=== PATIENT | female | born 1960 | race Caucasian/White ===

== ENCOUNTER 2023-01-23 13:55 | Emergency (ER) | payer BC, SELFPAY ==
[2023-01-23 14:06] VITALS: BP 169/90; PULSE 92; RESP 16; TEMP 37.1; O2SAT 99; BMI 29.3
--- NOTE | 2023-01-23 14:10 | CRLHL7_ITS ---
For Patients: As a result of the Century Cures Act, medical imaging exams and procedure reports are released immediately into your electronic medical record. You may view this report before your referring provider. If you have questions, please contact your health care provider. INDICATION: Pain, left ankle and foot swelling COMPARISON: Same day ankle radiographs TECHNIQUE: Three views left foot. FINDINGS: BONES: No fracture. Normal mineralization. No focal bone lesion. JOINT: Normal joint alignment. Joint spaces: Advanced degenerative change the midthigh. Soft Tissues: Normal. No foreign body. IMPRESSION: Advanced osteoarthritis in the left midfoot. No acute findings. Dictated by Vanessa Charlton MD @ 01/23/2023 4:18:09 PM (Electronically Signed)
--- NOTE | 2023-01-23 14:10 | CRLHL7_ITS ---
For Patients: As a result of the Century Cures Act, medical imaging exams and procedure reports are released immediately into your electronic medical record. You may view this report before your referring provider. If you have questions, please contact your health care provider. Indication: Pain Technique: Three views Comparison: None Findings/Impression: Bones: No evidence of fracture. Well-formed plantar heel spur. Joint spaces: Dorsal midfoot osteophytes. Soft tissues: Mild lateral soft tissue swelling. Dictated by Earnest Angeles MD @ 01/23/2023 3:46:48 PM (Electronically Signed)
--- NOTE | 2023-01-23 15:36 | ED.GENADULT ---
HPI - General Adult General Chief complaint: Extremity Pain/Injury, Lower Stated complaint: L ankle/foot pain Time Seen by Provider: 01/23/23 14:47 History of Present Illness HPI narrative: Patient here with left foot and ankle pain. She has struggled with pain in this ankle for the last three years because of some degenerative changes. Saw the chiropractor x2 over the last couple weeks, today cannot hardly walk on it. Took 4 ibuprofen this morning, has been icing. Using a walker today to assist with ambulation. 62-year-old woman presenting to the emergency department concern of foot and ankle pain. This is left side. She has a history of right side hip replacement. Two days following last manipulation for foot pain. Actually had both feet manipulated as has been struggling with foot pain bilaterally but left greater than right. Pain was expected to increase since last manipulation 2 days ago but not to this degree. No fever. No rashes. No new trauma. Is admittedly a little better after the ibuprofen that she took. Higher than than usual though today. Has also been icing. Using a walker to get about particularly today. 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 Typically would require a good deal of time on her feet. She does have a custom orthotic insole bilaterally. Related Data Home Medications Medication Instructions Recorded Confirmed calcium carbonate 600 mg calcium 600 mg PO DAILY 02/11/22 07/30/22 (1,500 mg) tablet cholecalciferol (vitamin D3) 25 25 mcg PO DAILY 02/11/22 07/30/22 mcg (1,000 unit) tablet levothyroxine 75 mcg tablet 75 mcg PO DAILY 02/11/22 07/30/22 loratadine 10 mg tablet 10 mg PO DAILY 02/11/22 07/30/22 mometasone 50 mcg/actuation nasal 2 intranasal .Daily as needed PRN 02/11/22 07/30/22 spray multivitamin 1 tab PO QDAY 02/11/22 07/30/22 Allergies Allergy/AdvReac Type Severity Reaction Status Date / Time grass pollen Allergy Verified 07/30/22 15:17 Review of Systems Status of ROS: Reports: 6 or more systems reviewed and unremarkable except as noted in History and below [facility] Medical History Seasonal allergic rhinitis ?J30.2 - Other seasonal allergic rhinitis (ICD-10) Postmenopausal estrogen deficiency ?Z78.0 - Asymptomatic menopausal state (ICD-10) Hypothyroidism ?E03.9 - Hypothyroidism, unspecified (ICD-10) Surgical History Status post right hip replacement (06/27/21) ?Z96.641 - Presence of right artificial hip joint (ICD-10) Social History Smoking Status: Never smoker Exam Narrative: Exam Narrative: Pleasant. Breathing easily. Seated with legs out in front of her in bed. Skin is warm and dry. I do not appreciate much in the way of lower extremity edema Most tender about the lateral malleolus. There is mild soft tissue swelling about the lateral malleolus on the left though not indistinct from the right side. Most tender anterior and inferior to that lateral malleolus on the left. No plantar bruising. Overlapping of the left 5th toe over the 4th. Const: Vital Signs, click to edit/add: Vital Signs - 24 hr 01/23/23 14:06 Temperature 98.8 F Pulse Rate [Pulse Oximeter] 92 Respiratory Rate 16 Blood Pressure [Ri ght Upper Arm] 169/90 H Pulse Oximetry 99 Oxygen Delivery Me thod Room Air Documenting provider has reviewed patient's vital signs: yes Course Vital Signs Vital signs: Initial Vital Signs Temperature 98.8 F 01/23/23 14:06 Temperature Source Temporal Artery Scan 01/23/23 14:06 Pulse Rate 92 01/23/23 14:06 Pulse Rhythm Regular 01/23/23 14:06 Respiratory Rate 16 01/23/23 14:06 Blood Pressure 169/90 H 01/23/23 14:06 Blood Pressure Mean 116 H 01/23/23 14:06 Blood Pressure Position Sitting 01/23/23 14:06 Pulse Oximetry 99 01/23/23 14:06 Oxygen Delivery Method Room Air 01/23/23 14:06 Vital Signs Temperature 98.8 F 01/23/23 14:06 Pulse Rate 92 01/23/23 14:06 Respiratory Rate 16 01/23/23 14:06 Blood Pressure 169/90 H 01/23/23 14:06 Pulse Oximetry 99 01/23/23 14:06 Oxygen Delivery Method Room Air 01/23/23 14:06 Temperature 98.8 F 01/23/23 14:06 Pulse Rate 80 01/23/23 17:13 Respiratory Rate 16 01/23/23 17:13 Blood Pressure 175/100 H 01/23/23 17:13 Pulse Oximetry 93 01/23/23 17:13 Oxygen Delivery Method Room Air 01/23/23 17:13 Medical Decision Making MDM Narrative Medical decision making narrative: Can certainly do imaging given concerns. I would anticipate seeing osteoarthritic changes. I think it is unlikely that there is a fracture although I suppose there could be something more indolent or stress fracture. I wonder compensating for the right hip at some point exacerbated left foot/ankle symptoms. Does not have symptoms consistent with rheumatoid or other inflammatory condition joint. X-rays of the left foot and ankle reviewed by me shows osteoarthritic changes but I do not see acute abnormality. Heel spur. Radiology over-read notes advanced degenerative changes about the midfoot. No interventions otherwise required an emergency department. See patient discharge plan Discharge Plan Discharge Clinical Impression: Arthralgia of both ankles, Osteoarthritis, Arthralgia of both feet Patient Disposition: Home w/ Parent or Adult Condition: Stable Additional Instructions: Rest as able over the next few days. Elevate at rest. I appreciate that icing can help them feel better and as such might want to ice your ankles/foot 2-3 times daily over the next few days. It might be time to schedule a visit with Orthopedics. Can call [phone] to schedule locally. Injections might be helpful. Podiatry is also available at the [facility] Over this coming week could take 400-600 mg of ibuprofen maybe with a little food 3 times daily. Alternative to that would be up to 500 mg of naproxen 2 times daily. Either can be combined with acetaminophen. Prednisone might be helpful to settle down inflammation. If you find side effects too much, can take half the dosing or discontinue and continue with the ibuprofen or naproxen alone. Ibuprofen, naproxen, acetaminophen can be combined with prednisone as well. Prescriptions: No Action cholecalciferol (vitamin D3) 25 mcg (1,000 unit) tablet 25 mcg PO DAILY loratadine 10 mg tablet 10 mg PO DAILY mometasone 50 mcg/actuation spray,non-aerosol 2 intranasal .Daily as needed PRN calcium carbonate 600 mg calcium (1,500 mg) tablet 600 mg PO DAILY levothyroxine 75 mcg tablet 75 mcg PO DAILY multivitamin Tablet 1 tab PO QDAY Follow Up/Referrals: Melissa Barnes CNP [Primary Care Provider] - Stand Alone Forms: [facility] [facility] Info Instructions
[2023-01-23 17:13] VITALS: BP 175/100; PULSE 80; RESP 16; O2SAT 93
== END 2023-01-23 17:21 | disposition home or self-care (01) ==
PROVIDERS: Emergency Provider Family Medicine; PCP Family Medicine
DX: M19.072 Primary osteoarthritis, left ankle and foot (principal); M19.071 Primary osteoarthritis, right ankle and foot
CPT/HCPCS: 73610; 73630; 99283; 99284

== ENCOUNTER 2023-06-03 15:15 | Outpatient (RCR) | payer BC, SELFPAY | END 2023-06-26 13:38 | disposition home or self-care (01) | PROVIDERS: PCP Family Medicine; Visit Provider Physician Assistant | DX: M79.672 Pain in left foot (principal); M25.572 Pain in left ankle and joints of left foot; G89.29 Other chronic pain; M19.072 Primary osteoarthritis, left ankle and foot; Z51.89 Encounter for other specified aftercare | CPT/HCPCS: 97110; 97161; 97535 ==

== ENCOUNTER 2023-09-28 14:42 | Outpatient (CLI) | payer MEDICARE, BC, SELFPAY | END 2023-09-28 14:43 | disposition home or self-care (01) | LOC: NFLDREF 09-29 13:27 | PROVIDERS: PCP Family Medicine; Referring Provider Family Medicine; Visit Provider Nurse Practitioner Family | DX: N30.00 Acute cystitis without hematuria (principal) | CPT/HCPCS: 87086 ==

== ENCOUNTER 2023-11-07 07:05 | Emergency (ER) | payer MEDICARE, BC, SELFPAY ==
[2023-11-07 07:32] VITALS: BP 167/98; PULSE 74; RESP 16; TEMP 37.1; O2SAT 98; BMI 30.7
[2023-11-07] MEDS: ONDANSETRON ODT 4 MG TAB PO (08:28)
[2023-11-07] MEDS: MECLIZINE HCL 25 MG TABLET PO (08:28)
--- NOTE | 2023-11-07 08:28 | ED_ITS ---
HPI - General Adult General Date Seen: 11/07/23 Chief complaint: Dizziness/Vertigo Stated complaint: poss vertigo Time Seen by Provider: 11/07/23 08:02 Source: patient, RN notes reviewed and old records reviewed Mode of arrival: ambulatory Limitations: no limitations History of Present Illness HPI narrative: Patient is a 63-year-old woman who describes a vertigo which started evening, she presents on Thursday morning saying that she thought yesterday was getting little better but last night seem to get worse again. Also, they were supposed to leave for the [place] in 2 days, so she was hoping maybe she could get checked out in feel better by then. Her says though that they are just going to reschedule that trip. She describes as spinning type dizziness. She feels reasonably good when she is still, but when she turns her head or tries to get up and move she develops dizziness associated with nausea. She has also had some occasional diaphoresis. She did have an episode of vertigo about 13 years ago which she feels felt similar, though she does not recall having any diaphoresis at that time. She has not had chest pain or palpitations. She has not had other neurologic symptoms. No headache. She denies any prior medical history such as hypertension, stroke, diabetes, heart disease or atrial fibrillation. She says her blood pressure is always high when she goes to the doctor because she gets nervous. She does take Synthroid. She does not smoke or drink. Related Data Home Medications ?Medication ?Instructions ?Recorded ?Confirmed calcium carbonate 600 mg PO DAILY 02/11/22 11/07/23 cholecalciferol (vitamin D3) 25 25 mcg PO DAILY 02/11/22 11/07/23 mcg (1,000 unit) tablet levothyroxine 75 mcg tablet 75 mcg PO DAILY 02/11/22 11/07/23 loratadine 10 mg tablet 10 mg PO DAILY 02/11/22 11/07/23 multivitamin 1 tab PO QDAY 02/11/22 11/07/23 Previous Rx's ?Medication ?Instructions ?Recorded lorazepam 1 mg tablet 1 mg PO TID PRN #10 tabs 11/07/23 meclizine 25 mg tablet 25 mg PO TID PRN #15 tabs 11/07/23 ondansetron 4 mg disintegrating 4 mg PO TID PRN nausea and 11/07/23 tablet vomiting #10 tabs Allergies Allergy/AdvReac Type Severity Reaction Status Date / Time grass pollen Allergy Verified 11/07/23 07:35 Review of Systems Status of ROS: Reports: 10 or more systems reviewed and unremarkable except as noted in History and below [facility] Medical History Seasonal allergic rhinitis ?J30.2 - Other seasonal allergic rhinitis (ICD-10) Postmenopausal estrogen deficiency ?Z78.0 - Asymptomatic menopausal state (ICD-10) Hypothyroidism ?E03.9 - Hypothyroidism, unspecified (ICD-10) Surgical History Status post right hip replacement (06/27/21) ?Z96.641 - Presence of right artificial hip joint (ICD-10) Social History Smoking Status: Never smoker Do you use any of these nicotine containing products: None Second hand tobacco smoke exposure: No How often do you have a drink containing alcohol: never AUDIT-C Alcohol total score: 0 Non-prescribed substance use: denies use Exam Narrative: Exam Narrative: Vital signs as noted above. In general, an alert, well-appearing patient. She is comfortable lying still in bed. Head: Normocephalic, atraumatic. Eyes: Pupils are equal reactive. Extraocular movements are full. Conjunctivae are normal. Some nystagmus on rightward gaze, symptoms exacerbated with rightward gaze. ENT: Mucous membranes are moist. Throat is normal. Tongue is midline. Neck: Supple without lymphadenopathy. No bruits. Heart: Regular rate and rhythm. No murmur or rub. Lungs: Clear bilaterally. No increased work of breathing, crackles or wheezes. Abdomen: Soft and nontender. No organomegaly. Extremities: Well perfused. No edema. No calf tenderness. Pulses intact. Neurologic: Patient is alert and oriented to person and place. Speech is fluent. Face is symmetric. Moves all extremities equally. Cerebellar function is intact by finger-nose testing. Affect: Normal. Skin: Warm and dry. Well perfused. Const: Vital Signs, click to edit/add: Vital Signs - 24 hr 11/07/23 07:32 11/07/23 09:20 11/07/23 10:05 Temperature 98.8 F Pulse Rate [Pulse Oximeter] 74 7 L Respiratory Rate 16 16 Blood Pressure [Ri ght Upper Arm] 167/98 H 151/91 H Pulse Oximetry 98 99 99 Oxygen Delivery Me thod Room Air Room Air 11/07/23 10:10 11/07/23 11:26 Temperature Pulse Rate [Pulse Oximeter] 74 76 Respiratory Rate 16 16 Blood Pressure [Ri ght Upper Arm] 148/96 H 141/80 H Pulse Oximetry 97 98 Oxygen Delivery Me thod Room Air Room Air Documenting provider has reviewed patient's vital signs: yes Course Course ED Course: Overall patient is well-appearing, exam is reassuring. Presentation is most suggestive of a peripheral vertigo with waxing and waning symptoms, strong component of positional worsening, lack of ataxia or other neurologic symptoms, lack of risk factors. She did have an EKG here which shows a sinus rhythm, ventricular rate of 78. Nonspecific T-wave changes. I will go ahead and check a troponin, my suspicion for acute coronary syndrome is low however. I have fairly low suspicion as well of a central event such as stroke. For now, plan will be to give some meclizine and Zofran, see how she is feeling. Discussed with her that if symptoms are not improving over the next couple of days, would want her to be seen in the clinic beginning of next week. She would be outside the window for anything therapeutic at this time, but if not improving imaging may be warranted. She felt somewhat improved after meclizine and Zofran, but did ask for additional medications so she was given a mg of IV Ativan as well as Reglan 10 mg IV. Symptoms were nearly resolved after that. Labs showed a normal white blood cell count normal hemoglobin of 15, normal electrolytes and renal function and a blood sugar of 109. Point of care troponin was 0. Magnesium 2.3. I do think it is reasonable to let her go home. Have reviewed with her symptoms are persistent I would like her to be seen in clinic next week. For any acute worsening or inability to manage at home, development of acute new symptoms return to the ER. Vital Signs Vital signs: Initial Vital Signs Temperature 98.8 F 11/07/23 07:32 Temperature Source Temporal Artery Scan 11/07/23 07:32 Pulse Rate 74 11/07/23 07:32 Respiratory Rate 16 11/07/23 07:32 Blood Pressure 167/98 H 11/07/23 07:32 Blood Pressure Mean 121 H 11/07/23 07:32 Blood Pressure Position Sitting 11/07/23 07:32 Pulse Oximetry 98 11/07/23 07:32 Oxygen Delivery Method Room Air 11/07/23 07:32 Vital Signs Temperature 98.8 F 11/07/23 07:32 Pulse Rate 74 11/07/23 07:32 Respiratory Rate 16 11/07/23 07:32 Blood Pressure 167/98 H 11/07/23 07:32 Pulse Oximetry 98 11/07/23 07:32 Oxygen Delivery Method Room Air 11/07/23 07:32 Temperature 98.8 F 11/07/23 07:32 Pulse Rate 76 11/07/23 11:26 Respiratory Rate 16 11/07/23 11:26 Blood Pressure 141/80 H 11/07/23 11:26 Pulse Oximetry 98 11/07/23 11:26 Oxygen Delivery Method Room Air 11/07/23 11:26 Medications Administered Medications: Discontinued Medications Generic Name Dose Route Start Last Admin Trade Name Freq PRN Reason Stop Dose Admin Sodium Chloride 1,000 mls @ 1,000 mls/hr 11/07/23 09:45 11/07/23 11:05 0.9 % Sodium Chloride 1000 Ml IV 11/07/23 10:44 Infused .Q1H PERLA Infusion Metoclopramide HCl 10 mg/ 102 mls @ 306 mls/hr 11/07/23 09:45 11/07/23 10:28 Sodium Chloride IVPB 11/07/23 09:46 Infused ONCE ONE Infusion Lorazepam 1 mg 11/07/23 09:45 11/07/23 10:05 Lorazepam 2 Mg/Ml Inj IVP 11/07/23 09:46 1 mg ONCE ONE Administration Meclizine HCl 25 mg 11/07/23 08:20 11/07/23 08:28 Meclizine Hcl 25 Mg Tablet PO 11/07/23 08:21 25 mg ONCE ONE Administration Ondansetron HCl 4 mg 11/07/23 08:20 11/07/23 08:28 Ondansetron Odt 4 Mg Tab PO 11/07/23 08:21 4 mg ONCE ONE Administration Medical Decision Making Lab Data Labs: Lab Results 11/07/23 Range/Units 08:33 WBC 6.06 (4.50-11.00) K/uL RBC 4.98 (4.00-5.20) m/uL Hgb 15.1 (12.0-16.0) gm/dL Hct 44.2 (33.0-51.0) % MCV 89 (80-100) fL MCH 30 (26-34) pg MCHC 34 (32-36) gm/dL RDW Coeff of [place] 13.0 (11.5-15.5) % Plt Count 255 (140-440) K/uL Neut % (Auto) 73.1 H (42.0-72.0) % Lymph % (Auto) 18.2 L (20-44) % [place] % (Auto) 6.9 (0.0-11.0) % Eos % (Auto) 0.5 (0.0-7.0) % Baso % (Auto) 0.3 (0.0-3.0) % Neut # (Auto) 4.40 (1.7-7.0) K/uL Lymph # (Auto) 1.10 (0.90-2.90) K/uL [place] # (Auto) 0.40 (0.00-0.90) K/UL Eos # (Auto) 0.03 (0.00-0.50) K/uL Baso # (Auto) 0.02 (0.00-0.30) K/uL Abs Immat Gran (auto) 0.06 (0.00-0.30) K/uL Imm/Tot Granulo (auto) 1.0 % Sodium 138 (135-149) mmol/L Potassium 4.2 (3.6-5.1) mmol/L Chloride 105 (96-114) mmol/L Carbon Dioxide 27 (20-32) mmol/L Anion Gap 6 L (7-15) mEq/L BUN 20 (7-30) mg/dL Creatinine 0.8 (0.5-1.5) mg/dL Estimated Creat Clear 44.36 Estimated GFR 82 ml/min Glucose 109 (60-115) mg/dL Calcium 9.6 (8.4-10.6) mg/dL Magnesium 2.3 (1.5-2.6) mg/dL POC Troponin I 0.00 L (0.01-0.04) ng/ml Discharge Plan Discharge Clinical Impression: Positional vertigo Patient Disposition: Home, Self-Care Condition: Improved Instructions: Vertigo (DC) Additional Instructions: You can use prescribed medications at home as needed for symptoms. If you found Hallpike type maneuvers helpful previously, it would be reasonable to try that again. If you are not able to manage at home with symptoms despite treatment, return to the emergency department. If you are not improving over the next couple of days, please see her primary care doctor next week. Imaging may be reasonable if you are not improving, and they can also help with referral to physical therapy if needed. Prescriptions: New meclizine 25 mg tablet 25 mg PO TID PRNQty: 15 0RF ondansetron 4 mg tablet,disintegrating 4 mg PO TID PRN (Reason: nausea and vomiting) Qty: 10 0RF lorazepam 1 mg tablet 1 mg PO TID PRNQty: 10 0RF No Action cholecalciferol (vitamin D3) 25 mcg (1,000 unit) tablet 25 mcg PO DAILY loratadine 10 mg tablet 10 mg PO DAILY calcium carbonate 600 mg calcium (1,500 mg) tablet 600 mg PO DAILY levothyroxine 75 mcg tablet 75 mcg PO DAILY multivitamin Tablet 1 tab PO QDAY Follow Up/Referrals: Melissa Barnes [employer] [Primary Care Provider] - Stand Alone Forms: [employer] Info Instructions
--- OUTSIDE RECORDS SUMMARY | 2023-11-07 08:29 | XMS_ITS | Clinical Summary ---
Author Organization [facility] Address [place], [place] [address] Care Team Providers Care [place] Aide Name Role Phone Melissa Barnes DENNIS Primary Care Provider [phone] Allergies Active Allergy Reactions Criticality Noted Date Comments Grass Pollen Itching Low 11/01/2019 dust Medications Medication Sig Dispensed Refills Start Date End Date Status cholecalciferol (VITAMIN D3) 1,000 unit capsuleIndications: Vitamin D deficiency Take 1 capsule by mouth once daily. in the summer and 2 in the winter 0 07/28/2017 Active multivitamin (MVI) tablet Take 1 Tablet by mouth once daily. 100 tablet 3 07/28/2017 Active calcium carbonate (CALTRATE) 600 mg calcium (1,500 mg) tablet Take 1 tablet by mouth 2 times daily with meals. 180 tablet 3 07/28/2017 Active mometasone (NASONEX) (50 mcg each actuation) nasal sprayIndications:Al lergic rhinitis, unspecified seasonality, unspecified trigger Inhale 2 Sprays into affected nostril(s) once daily if needed (Nasal allergy symptoms). 34 g 06/17/2021 Active loratadine (CLARITIN) 10 mg tablet Take 10 mg by mouth once daily. 0 06/17/2021 Active ketotifen (ZADITOR) 0.025 % (0.035 %) ophthalmic solution Place 1 Drop into both eyes 2 times daily if needed (Eye allergy symptoms). Active levothyroxine (SYNTHROID) 75 mcg tabletIndications:H ypothyroidism, unspecified type Take 1 Tablet (75 mcg) by mouth once daily. 90 Tablet 3 02/13/2023 Active durable medical equipment (DME)Indications:Le ft ankle pain, unspecified chronicity,Chronic pain of left ankle Stabilizing speed pro ankle brace, size medium 05/06/2023 Active meloxicam (Mobic) 15 mg tabletIndications:L eft foot pain,Left ankle pain, unspecified chronicity,Foot pain, left,Chronic pain of left ankle,Arthritis of foot, left Take 1 Tablet (15 mg) by mouth once daily. 30 Tablet 1 06/29/2023 Active Active Problems Problem Noted Date Diagnosed Date SBO (small bowel obstruction) 03/07/2022 Hypothyroidism 03/07/2022 Pap smear for cervical cancer screening 01/24/20 Overview (03/14/2022): 01/2022 NIL/HPV negative. Plan: Routine Screening. Status post right hip replacement 06/27/2021 Postmenopausal 06/17/2021 Overview (06/17/2021): 2019 Other chronic sinusitis 02/06/2021 Overview (02/06/2021): takes linda for this about once a year Osteoporosis screening 07/28/2017 Overview (07/28/2017): DEXA normal 06/2016 due in 10 yrs Vitamin D deficiency 06/25/2011 Degenerative arthritis of lumbar spine 1 Unspecified hypothyroidism 06/11/2009 Allergic rhinitis, cause unspecified 05/08/2006 Resolved Problems Problem Noted Date Diagnosed Date Resolved Date Menorrhagia 08/16/2014 07/17/2015 FH: colon polyps 04/01/2014 06/17/2021 Menopause 07/31/2010 06/17/2021 Overview (02/06/2021): menses quit 2018 Bilateral hip pain 05/22/2008 0 Plantar fascial fibromatosis 10/21/2007 06/17/2021 Temporomandibular joint diso rders, unspecified 05/08/2006 07/17/2015 SINUSITIS RECURRENT 05/08/2006 06/18/19 22 Immunizations Name Administration Dates Next Due AMB Influenza, IIV3 (Age >=3 years)(Flu Clinic Only) 12/10/2009 COVID-19 vaccine (Perficient NTArnica 30mcg/0.3mL) PF, MDV 02/06/2021,05/20/2020,04/29/2020 Influenza A (H1N1), Inactiva dhiraj (Age >=3 Years) 03/20/2009 Influenza, IIV3 (Age 6-35 mos) 12/11/2015,2014,02/07/2009 Influenza, IIV3 (Age >=3 years) 12/03/19 19,12/16/2012,11/27/2011,2010,12/10/2009,02/07/2009,12/30/2007,0 03/16/2007 Influenza, IIV4 12/04/2022, 2,12/07/2020,2019,12/02/2018,12/10/2017,12/04/2016 Influenza, IIV4 (=>6mos) MDV 12/02/2018 Td (Age >=7 Years) 02/26/2002 Tdap 02/11/2022,01/12/2012 Zoster (Shingrix-RZV, recombinant) 01/16/2021, Family History Medical History Relation Name Comments Cancer Father tongue 02/01 esteban ng cancer 04/05 portion of lung removed GI Disease Father History of Poly ps Heart failure Father CHF Hypertension Father Arthritis Mother & scoliosis GI Disease Mother History of Poly ps Hypertension Mother Osteoporosis Mother Seizures Mother Cancer-breast Other Maternal Cousin Heart attack Paternal Grandmother Cancer-ovarian No Family History Relation Name Status Comments Brother Alive Father Alive Maternal Grandfather Maternal Grandmother Mother Alive Other Maternal Cousin Paternal Grandfather Paternal Grandmother Social History Tobacco Use Types Packs/Day Years Used Date Smoking Tobacco: Never Smokeless Tobacco: Never Tobacco Cessation:Counseling Given: Yes Alcohol Use Standard Drinks/Week Comments Yes 1.7 (1 standard drink = 0.6 oz p ure alcohol) SOCIALLY PHQ-2 Answer Date Recorded PHQ-2 TOTAL SCORE 0 02/13/2023 Social Connections Answer Date Recorded Frequency of Communication with Friends and Fami ly 0 02/13/2023 Financial Resource Strain Answer Date R ecorded Difficulty of Paying Living Expenses 3 02/13/2023 Difficulty of Paying Living Expenses Not on file 02/13/2023 Food Insecurity Answer Date Recorded Worried About Running Out of Food in the Last Ye ar 1 02/13/2023 Transportation Needs Answer Date Record ed Lack of Transportation (Medical) 1 02/13/2023 Housing Stability Answer Date Recorded Unable to Pay for Housing in the Last Year 1 02/13/2023 Sex and Gender Information Value Date Recorded Sex Assigned at Not on file Gender Identity Not on file Sexual Orientation Not on file Obstetrics History Para Term AB IAB SAB Ectopic Multiple Livin g Live Births 0 0 0 0 0 0 0 0 0 0 Last Filed Vital Signs Vital Sign Reading Time Taken Comments Blood Pressure 138/88 02/13/2023 7:54 AM OPERATING ROOM SCHEDULER Pulse 74 02/13/2023 7:54 AM OPERATING ROOM SCHEDULER Temperature 36.8 ??C (98.2 ??F) 07/28/2022 8:46 AM CD T Respiratory Rate 18 03/28/2022 8:48 PM OPERATING ROOM SCHEDULER Oxygen Saturation 99% 09/03/2022 2:06 PM CDT Inhaled Oxygen Concentration - - Weight 76.2 kg (168 lb) 02/13/2023 7:54 AM OPERATING ROOM SCHEDULER Height 155.6 cm (5' 1.25) 02/13/2023 7:54 AM CS T Body Mass Index 31.48 02/13/2023 7:54 AM OPERATING ROOM SCHEDULER Plan of Treatment Health Maintenance Due Date Last Done Comments HIV for age 15-65 1973 Mammogram for age 45-75 08/29/2023 08/29/19 23, 02/11/2022, 02/06/2021, Additional history exists DEXA/DXA scan for age 65+ 09/08/2023 07/31/2016 Pneumococcal series for age 65+ (1 of 1 - PCV) 09/08/2023 COVID-19 vaccine series (5 - 2022-24 season) 2023 12/20/2021, 02/06/2021, 05/20/2020, Additional history exists Influenza for age 65+ 10/25/2023 12/04/2022 , 12/20/2021, 12/07/2020, Additional history exists BMI (ht and wt on same day) for age 18+ 02/14/2024 02/13/2023, 02/11/2022, 06/17/2021, Additional history exists Depression screening for age 12+ 02/14/2024 02/13/2023, 02/11/2022, 02/06/2021, Additional history exists Colonoscopy through age 75 02/05/202502/05, 10/16/2014, 10/16/2014, Additional history exists Pap test for age 21-65 02/11/2025 , 02/11/2022, 07/30/2018, Additional history exists Lipids for age 45-75 02/14/2028 02/13/2023, 02/11/2022, 02/06/2021, Additional history exists Tetanus booster 02/12/2032 02/11/2022, 12/24, 02/26/2002 Hepatitis C screening for ag e 18-79 Completed 01/21/2019 Zoster (shingles) series for age 50+ Completed 01/16/2021, 09/26/2020 Tdap Completed 02/11/2022, 01/12/2012 Procedures Procedure Name Priority Date/Time Associated Diagnosis Comments LIPID PANEL W REFLEX MEASURED LDL Routine 02/13/2023 8:27 AM OPERATING ROOM SCHEDULER Routine general medical examination at a [facility] facility XR MAMMO LYNNETTE UNI DIAG RIGHT CHAD 08/28/2022 2:18 PM CDT Skin lesion HPV THIN PREP Routine 02/11/2022 11:19 AM OPERATING ROOM SCHEDULER Pap smear for cervical cancer screening COLONOSCOPY 02/06/2020 10:18 AM OPERATING ROOM SCHEDULER ANTI HCV Routine 01/21/2019 8:58 AM OPERATING ROOM SCHEDULER Encounter for hepatitis C screening test for low risk patient XR DXA BONE DENSITY 2 SITES AXIAL Routine 07/31/2016 9:11 AM CDT Osteoporosis screening from Last 3 Months or Most Recently Relevant to Health Maintenance Results * (ABNORMAL) LIPID PANEL W REFLEX MEASURED LDL (02/13/2023 8:27 AM [facility]) CHOLESTEROL,TOTAL 217(H) 100 - 199 mg/dL 02/13/2023 9:08 AM [facility] Comment: Cholesterol, Total Reference Ranges Desirable <200 mg/dL Borderline 200-239 mg/dL High >=240 mg/dL TRIGLYCERIDES 115 <150 mg/dL 02/13/2023 9:08 AM [facility] HDL CHOLESTEROL 71 >40 mg/dL 9:08 AM [facility] NON-HDL CHOLESTEROL 146(H) <145 mg/dl 02/13/2023 9:08 AM [facility] CHOL/HDL RATIO 3.06 <4.50 02/13/2023 9:08 AM [facility] LDL CHOLESTEROL 123 <=130 mg/dL 02/13/2023 9:08 AM [facility] VLDL CHOLESTEROL 23 <=30 mg/dL 02/13/2023 9:08 AM [facility] PROVIDER ORDERED STATUS RANDOM 02/13/2023 9:08 AM [facility] Blood BLOOD SPECIMEN / Unknown Venipuncture / Unknown 02/13/2023 8:27 AM OPERATING ROOM SCHEDULER 02/13/2023 8:29 AM [facility] Melissa Barnes NP CHEMISTRY [facility] [address] [place] [address] * XR MAMMO LYNNETTE UNI DIAG RIGHT (08/28/2022 2:18 PM CDT) Anatomical Region Laterality Modality BREASTS, Breast Right Mammograph y Impressions 08/28/2022 4:11 PM CDT Small area of fluid within the skin RIGHT breast 3 o'clock 7 cm from the nipple measuring 9 x 2 x 8 millimeters. No evidence of underlying malignancy. RECOMMENDATIONS: Clinical follow-up. BI-RADS Category 2: Benign Results and recommendations discussed with the patient. Dictated by: Panfilo Tamez MD @08/28/2022 2:30:05 PM/jsb PATIENTS: You will also receive a letter with your examination results in an easy to read format. ??If you have questions about your results, please contact your referring provider. Narrative 08/28/2022 4:11 PM CDT As a result of the Cures Act, medical imaging exams and procedure reports are released immediately into your electronic medical record. ??You may view this report before your referring provider. ??If you have questions, please contact your health care provider. RIGHT BREAST MAMMOGRAM DIGITAL DIAGNOSTIC WITH COMPUTER-AIDED DETECTION AND TOMOSYNTHESIS 08/28/2022 ?? RIGHT BREAST ULTRASOUND 08/28/2022 CLINICAL HISTORY: RIGHT breast ulcerated skin lesion. COMPARISON: 02/11/2022, 02/06/2021, 01/30/2020. TECHNIQUE: Digital RIGHT mammogram in 2 projections. ??Computer-aided detection and tomosynthesis were used. Real-time ultrasound imaging of RIGHT breast with imaging documentation. BREAST COMPOSITION: The breasts are heterogeneously dense, which may obscure small masses. ?? FINDINGS: 3D CC/MLO RIGHT breast mammogram images submitted. Benign calcifications are again noted along with multiple old fibroglandular densities. No architectural distortion. No adenopathy. Targeted sonogram RIGHT breast 3 o'clock 7 cm from the nipple performed. In this location, there is a small area of decreased echogenicity within the skin measuring 9 x 2 x 8 millimeters corresponding to the skin infection. Mary CRISTOBAL MAMMO * HPV HIGH RISK (02/11/2022 11:19 AM OPERATING ROOM SCHEDULER) TYPE 16 Negative Negative 02/13/2022 5:26 PM OPERATING ROOM SCHEDULER [facility] [employer] [facility] TYPE 18 Negative Negative 02/13/2022 5:26 PM OPERATING ROOM SCHEDULER [facility] OTHER HIGH RISK TYPES Negative Negative 02/13/2022 5:26 PM OPERATING ROOM SCHEDULER [facility] Other (Cervical) Non-Blood / Unknown 02/11/2022 11:19 AM OPERATING ROOM SCHEDULER 02/12/2022 12:04 PM OPERATING ROOM SCHEDULER Narrative [facility] - 02/13/2022 5:26 PM OPERATING ROOM SCHEDULER HPV types 16, 18, 31, 33, 35, 39, 45, 51, 52, 56, 58, 59, 66 and 68 DNA were undetectable or below the pre-set threshold. Methodology: Marleen Steve 4800 HPV Test Melissa Sierraefrem [facility] [address] [place] [address], [place] * COLONOSCOPY (02/06/2020 10:18 AM OPERATING ROOM SCHEDULER) 02/06/2020 10:1 8 AM OPERATING ROOM SCHEDULER Narrative Transcriptions Keven Conde MD - 02/06/2020 11:05 AM CST Patient Name: Nela Ko Procedure Date: 02/06/2020 Gender: Female Date of : 1960 Admit Type: Ambulatory Procedure: Colonoscopy Proceduralist: Keven Conde [facility] Indications/Pre-Op Diagnosis: Colon cancer screening in patient atincreased risk: Family history of colon polyps in multiple 1st-degree relatives Medications: Midazolam 5 mg IV, Fentanyl 100 microgramsIV Procedure Description: The patient had risks, benefits and alternatives explained to andgave informed consent. The patient had a stable cardiopulmonary status and judged an adequate candidate for conscious sedation. The colonoscope was passed through the anus and advanced to theterminal ileum, with identification of the appendiceal orifice and IC valve.The colonoscopy was performed without difficulty. The patient toleratedthe procedure well. The quality of the bowel preparation was good. The ileocecal valve, appendiceal orifice, and rectum were photographed. Complications: No immediate complications. Estimated Blood Loss & Specimen: Estimated blood loss: none. Specimen collected - Yes and sent to Laboratory Findings: A 7 mm polyp was found in the hepatic flexure. The polyp was sessile. The polyp was removed with a hot snare. Resection and retrieval were complete. A 4 mm polyp was found in the proximal transverse colon. The polypwas sessile. The polyp was removed with a hot snare. Resection andretrieval were complete. A few small-mouthed diverticula were found in the sigmoid colon. The retroflexed view of the distal rectum and anal verge was normaland showed no anal or rectal abnormalities. Retroflexion in the right colon was performed. Impressions/Post-Op Diagnosis: - One 7 mm polyp at the hepatic flexure, removed with a hot snare. Resected and retrieved. - One 4 mm polyp in the proximal transverse colon, removed with a hot snare. Resected and retrieved. - Diverticulosis in the sigmoid colon. Recommendation: - Discharge patient to home. - Resume previous diet. - Continue present medications. - Await pathology results. - Repeat colonoscopy in 5 years for surveillance. Moderate Sedation: Moderate (conscious) sedation was administered by the endoscopy nurse and supervised by the endoscopist. The following parameters were monitored: oxygen saturation, heart rate, respiratory rate, adequacyof pulmonary ventilation and reponse to care. Please refer to the patient's medical record flowsheets for moderate sedation details. Moderate (conscious) sedation was administered by the endoscopy nurse and supervised by the endoscopist. The patient's oxygen saturation, heart rate, blood pressure and response to care were monitored. Total physician intraservice time was 23 minutes. Keven Conde, 02/06/2020 11:05:38 AM This report has been signed electronically. Note Initiated On: 02/06/2020 10:18 AM Keven Conde MD PROCEDURE ORD * ANTI HCV (01/21/2019 8:58 AM OPERATING ROOM SCHEDULER) HEPATITIS C ANTIBODY Non-React sandeep Non-React sandeep 01/21/2019 3:43 PM OPERATING ROOM SCHEDULER [facility] Comment:Antibodies to HCV no t detected; does not exclude the possibility of exposure to HCV. Blood BLOOD SPECIMEN / Unknown Venipuncture / Unknown 01/21/2019 8:58 AM OPERATING ROOM SCHEDULER 01/21/2019 8:59 AM OPERATING ROOM SCHEDULER Melissa Barnes BOOK [employer] [facility] [address] [place] [address], * XR DXA BONE DENSITY 2 SITES AXIAL (07/31/2016 9:11 AM CDT) Anatomical Region Laterality Modality Spine, HIPS, HIPL, HIPR Bone Den sitometry Narrative 07/31/2016 1:55 PM CDT Please see scanned document for results of this study. Manuel Lam DO DEXA from Last 3 Months or Most Recently Relevant to Health Maintenance Advance Directives * Full Code (Latest Code Status on File) Date Activated Date Inactivated Comments 03/07/2022 8:53 AM 03/08/2022 5:21 PM Question Answer Comments Code Status Discussion: Reviewed Preferences * Full Code Date Activated Date Inactivated Comments 02/06/2020 9:05 AM 02/06/2020 2:01 PM Question Answer Comments Code Status Discussion: Per Existing Order * Full Code Date Activated Date Inactivated Comments 08/17/2014 6:01 AM 08/17/2014 12:37 PM Question Answer Comments Code Status Discussion: Discussed Care Teams [place] Aide Relationship Specialty Start Date End Date Melissa Barnes NP [address] [place] [address] PCP - General Family Practice 07/06/17
[2023-11-07 08:44] LABS: Basophils Absolute Auto 0.02 K/uL (0.00-0.30); Basophils Percent Auto 0.3 % (0.0-3.0); Eosinophils Absolute Auto 0.03 K/uL (0.00-0.50); Eosinophils Percent Auto 0.5 % (0.0-7.0); Hematocrit 44.2 % (33.0-51.0); Hemoglobin* 15.1 gm/dL (12.0-16.0); Immature Granulocytes Abs Auto 0.06 K/uL (0.00-0.30); Lymphocytes Percent Auto 18.2 % (20-44); Mean Corpuscular HGB Conc 34 gm/dL (32-36); Mean Corpuscular Hemoglobin 30 pg (26-34); Mean Corpuscular Volume 89 fL (80-100); Monocytes Percent Auto 6.9 % (0.0-11.0); Neutrophils Percent Auto 73.1 % (42.0-72.0); Platelet Count* 255 K/uL (140-440); Red Blood Count 4.98 m/uL (4.00-5.20); White Blood Count* 6.06 K/uL (4.50-11.00)
[2023-11-07 08:49] LABS: Slide Review Reflex No
[2023-11-07 08:51] LABS: Chloride* 105 mmol/L (96-114); Potassium* 4.2 mmol/L (3.6-5.1); Sodium* 138 mmol/L (135-149)
[2023-11-07 08:53] LABS: Creatinine* 0.8 mg/dL (0.5-1.5); Est. Creatinine Clearance* 44.36; Estimated Glomerular Filt Rate 82 ml/min
[2023-11-07 08:54] LABS: Anion Gap 6 mEq/L (7-15); Blood Urea Nitrogen* 20 mg/dL (7-30); Calcium* 9.6 mg/dL (8.4-10.6); Carbon Dioxide* 27 mmol/L (20-32); Glucose* 109 mg/dL (60-115); Magnesium* 2.3 mg/dL (1.5-2.6)
[2023-11-07 09:20] VITALS: BP 151/91; PULSE 7; RESP 16; O2SAT 99
[2023-11-07] MEDS: 0.9 % SODIUM CHLORIDE 1000 ml 1,000 ML IV (10:04)
[2023-11-07 10:05] VITALS: O2SAT 99
[2023-11-07] MEDS: METOCLOPRAMIDE HCL 10 MG in 0.9 % SODIUM CHLORIDE 100 ml 100 ML 306 MG IVPB (10:05)
[2023-11-07] MEDS: LORazepam 2 MG/ML inj 1 MG IVP (10:05)
[2023-11-07 10:10] VITALS: BP 148/96; PULSE 74; RESP 16; O2SAT 97
[2023-11-07 11:26] VITALS: BP 141/80; PULSE 76; RESP 16; O2SAT 98
== END 2023-11-07 11:18 | disposition home or self-care (01) ==
PROVIDERS: Emergency Provider Emergency Medicine; PCP Family Medicine
DX: R42 Dizziness and giddiness (principal)
CPT/HCPCS: 36415; 80048; 83735; 84484; 85025; 93005; 94761; 96365; 99284; A9270; J2060; J2765; J7030

== ENCOUNTER 2023-11-14 07:21 | Emergency (ER) | payer MEDICARE, BC, SELFPAY ==
[2023-11-14 07:36] VITALS: BP 153/100; PULSE 96; RESP 18; TEMP 36.3; O2SAT 97; BMI 30.7
--- NOTE | 2023-11-14 08:04 | ED_ITS ---
HPI - General Adult General Time Seen by Provider: 08:06 Date Seen: 11/14/23 Chief complaint: Dizziness/Vertigo Stated complaint: nausea, blurred vision, headache Time Seen by Provider: 11/14/23 08:04 Source: patient and RN notes reviewed Mode of arrival: ambulatory Limitations: no limitations History of Present Illness HPI narrative: This 63-year-old female is returning to the ER with worsening vertigo and headache. She states since this past , today is Thursday, her vertigo returned and is worse. She has been doing meclizine daily. She has had almost ongoing nausea now. She has developed a headache, seems concentrated in the left occiput. Her arms and legs seem to be working fine but she does note when she gets up to walk that she will feel worsening dizziness, difficulty walking. She has had to use a walker for balance. She was evaluated in the ER on 11/07/2023, did have labs. She notes no fevers or chills but states she will get hot and feels sweaty, states she still has baseline hot flashes from menopause but this seems to be a little worse. No numbness or tingling anywhere. Speech is fine. She denies any history of headaches. She has had no arrhythmia feeling or irregular heartbeat. She has been trying the otolith and canalith repositioning maneuvers, initially did seem to help but now really isn't, continues to feel nauseated all the time. She reportedly had an episode of vertigo about 13 years ago. She does not carry any diagnoses of prior hypertension, stroke, diabetes, heart disease or atrial fibrillation. She is hypothyroid, on Synthroid. No alcohol use, no tobacco products. She last used meclizine and Zofran at 5:30 a.m. this morning. The symptoms are awakening her at times. Her initial symptoms started on November 04, ED presentation was ThursdayNovember 06 as noted. She baseline has tinnitus for years, is not worse. No noted changes in hearing. Related Data Home Medications ?Medication ?Instructions ?Recorded ?Confirmed calcium carbonate 600 mg PO DAILY 02/11/22 11/07/23 cholecalciferol (vitamin D3) 25 25 mcg PO DAILY 02/11/22 11/07/23 mcg (1,000 unit) tablet levothyroxine 75 mcg tablet 75 mcg PO DAILY 02/11/22 11/07/23 loratadine 10 mg tablet 10 mg PO DAILY 02/11/22 11/07/23 multivitamin 1 tab PO QDAY 02/11/22 11/07/23 Previous Rx's ?Medication ?Instructions ?Recorded lorazepam 1 mg tablet 1 mg PO TID PRN #10 tabs 11/07/23 meclizine 25 mg tablet 25 mg PO TID PRN #15 tabs 11/07/23 ondansetron 4 mg disintegrating 4 mg PO TID PRN nausea and 11/07/23 tablet vomiting #10 tabs prednisone 20 mg tablet 20 mg PO DAILY #7 tabs 11/14/23 Allergies Allergy/AdvReac Type Severity Reaction Status Date / Time grass pollen Allergy Verified 11/07/23 07:35 Review of Systems Status of ROS: Reports: 6 or more systems reviewed and unremarkable except as noted in History and below [facility] Medical History Seasonal allergic rhinitis ?J30.2 - Other seasonal allergic rhinitis (ICD-10) Postmenopausal estrogen deficiency ?Z78.0 - Asymptomatic menopausal state (ICD-10) Hypothyroidism ?E03.9 - Hypothyroidism, unspecified (ICD-10) Surgical History Status post right hip replacement (06/27/21) ?Z96.641 - Presence of right artificial hip joint (ICD-10) Social History Smoking Status: Never smoker Do you use any of these nicotine containing products: None Second hand tobacco smoke exposure: No How often do you have a drink containing alcohol: never AUDIT-C Alcohol total score: 0 Non-prescribed substance use: denies use Exam Const: Vital Signs, click to edit/add: Vital Signs - 24 hr 11/14/23 07:36 Temperature 97.4 F L Pulse Rate [Right Pulse Oximeter] 96 Respiratory Rate 18 Blood Pressure [Ri ght Upper Arm] 153/100 H Pulse Oximetry 97 Oxygen Delivery Me thod Room Air 63-year-old female is alert, interactive , no apparent distress. Speech is normal, lying in bed. She initially had her eyes closed but can keep them open during my interview. Pupils are equal round and reactive to light. Sclera clear. Extraocular muscles are intact, maybe 3-4 beats of left beating lateral nystagmus. Cover and uncover normal, no dolls eyes or catch-up saccades noted. Symmetrical facial function, TMs canals normal. Neck is supple, no adenopathy, no jugular venous distension. Lungs are clear, no tachypnea, breathing easily on room air. CV regular rate and rhythm, no murmur, normal S1-S2, no S3-S4. Abdomen is soft, no rebound or guarding. She has no tremors, no dysmetria, strength is 5/5 and symmetric. Normal light touch sensation. Documenting provider has reviewed patient's vital signs: yes Course Course ED Course: Given her ongoing symptoms with accompanying headache, will initiate head CT and CTA imaging may be considered after talking to Neurology. Will have patient on pulse oximetry, ensure normal baseline rhythm with EKG. Will obtain some labs as well, ensure that her TSH is therapeutic. Will initiate 500 mL normal saline and give her 1 mg IV Ativan. There features that certainly sounds like this is peripheral vertigo but reviewed with her could be very difficult to figure out. It is doubtful that we will be able to do any MRI imaging here. At some point will talk to Neurology about her as well. Reevaluation(s) Time of Reevaluation #1: 10:11 Reevaluation #1: Reviewed with patient her head CT is negative, labs are reassuring. Troponin is normal. Discussed my conversation with the stroke neurologist. This is likely vestibular neuritis, can have a headache with that per neurologist. He is recommending prednisone. She has meclizine and Zofran at home, does not need any further of this. Discussed increasing the meclizine to baseline 3 times a day for the next week. Did review with patient that she has some T-wave abnormalities on her EKG today as well as her prior. Troponins are normal. This should be considered to have further workup outpatient with her primary care provider. I would at baseline get an echo, consider cardiac stress testing if felt appropriate, will leave this to follow-up with her primary care provider. Consultations Consultation #1: Did speak with stroke neurologist Dr. Barrow. Given the length of patient's symptoms and the fact that symptoms are worsening now, accompanied by headache, normal head CT without any changes, he feels that this is consistent with vestibular neuritis. He states headache can be part of that. He would recommend prednisone 20 mg daily for 7 days with ongoing treatment of her symptoms. MRI could be pursued outpatient if ongoing issues but she certainly is beyond any window of any therapeutics, history is most consistent with peripheral process. He does not think there is any need to do CT angio imaging. I did hold off this until I had the CT report and talked to him. Time: 09:20 Vital Signs Vital signs: Initial Vital Signs Temperature 97.4 F L 11/14/23 07:36 Temperature Source Temporal Artery Scan 11/14/23 07:36 Pulse Rate 96 11/14/23 07:36 Respiratory Rate 18 11/14/23 07:36 Blood Pressure 153/100 H 11/14/23 07:36 Blood Pressure Mean 117 H 11/14/23 07:36 Blood Pressure Position Sitting 11/14/23 07:36 Pulse Oximetry 97 11/14/23 07:36 Oxygen Delivery Method Room Air 11/14/23 07:36 Vital Signs Temperature 97.4 F L 11/14/23 07:36 Pulse Rate 96 11/14/23 07:36 Respiratory Rate 18 11/14/23 07:36 Blood Pressure 153/100 H 11/14/23 07:36 Pulse Oximetry 97 11/14/23 07:36 Oxygen Delivery Method Room Air 11/14/23 07:36 Temperature 97.4 F L 11/14/23 07:36 Pulse Rate 96 11/14/23 07:36 Respiratory Rate 18 11/14/23 07:36 Blood Pressure 153/100 H 11/14/23 07:36 Pulse Oximetry 97 11/14/23 07:36 Oxygen Delivery Method Room Air 11/14/23 07:36 Medications Administered Medications: Discontinued Medications Generic Name Dose Route Start Last Admin Trade Name Freq PRN Reason Stop Dose Admin Sodium Chloride 500 mls @ 500 mls/hr 11/14/23 08:14 11/14/23 09:54 0.9 % Sodium Chloride 500 Ml IV 11/14/23 09:13 Infused .Q1H ONE Infusion Lorazepam 1 mg 11/14/23 08:16 11/14/23 08:53 Lorazepam 2 Mg/Ml Inj IVP 11/14/23 08:17 1 mg ONCE ONE Administration Ondansetron HCl 4 mg 11/14/23 08:14 11/14/23 08:52 Ondansetron 2 Mg/Ml Inj IVP 11/14/23 08:15 4 mg ONCE ONE Administration Medical Decision Making Lab Data Lab results reviewed: Yes I reviewed the patient's lab results Labs: Lab Results 11/14/23 11/14/23 Range/Units 09:00 09:10 WBC 6.08 (4.50-11.00) K/uL RBC 4.92 (4.00-5.20) m/uL Hgb 15.0 (12.0-16.0) gm/dL Hct 43.9 (33.0-51.0) % MCV 89 (80-100) fL MCH 31 (26-34) pg MCHC 34 (32-36) gm/dL RDW Coeff of Preston 13.1 (11.5-15.5) % Plt Count 257 (140-440) K/uL Neut % (Auto) 78.0 H (42.0-72.0) % Lymph % (Auto) 15.0 L (20-44) % Carlisle % (Auto) 5.6 (0.0-11.0) % Eos % (Auto) 0.7 (0.0-7.0) % Baso % (Auto) 0.5 (0.0-3.0) % Neut # (Auto) 4.70 (1.7-7.0) K/uL Lymph # (Auto) 0.90 (0.90-2.90) K/uL Carlisle # (Auto) 0.30 (0.00-0.90) K/UL Eos # (Auto) 0.04 (0.00-0.50) K/uL Baso # (Auto) 0.03 (0.00-0.30) K/uL Abs Immat Gran (auto) 0.01 (0.00-0.30) K/uL Imm/Tot Granulo (auto) 0.2 % Sodium 138 (135-149) mmol/L Potassium 3.8 (3.6-5.1) mmol/L Chloride 104 (96-114) mmol/L Carbon Dioxide 26 (20-32) mmol/L Anion Gap 8 (7-15) mEq/L BUN 15 (7-30) mg/dL Creatinine 0.9 (0.5-1.5) mg/dL Estimated Creat Clear 44.36 Estimated GFR 71 ml/min Glucose 102 (60-115) mg/dL Calcium 9.6 (8.4-10.6) mg/dL Troponin I < 0.01 L (0.01-0.04) ng/mL Lab Acknowledgement Test Added Imaging Data CT scan - head: Attestation: I have reviewed the pertinent imaging results. Radiologist's impression: Patient: KELTON BRIONES Facility:?[facility] Patient ID:?[id number] Site Patient ID:?[id number]. Site :?[id number] Study:?CT-Head WITHOUT-11/14/2023 8:35:47 AM Ordering Physician:Addie Mendez Final Report: INDICATION: Headache and vertigo for 1 week. COMPARISON: None. TECHNIQUE: CT of the brain / head without intravenous contrast. Multiplanar axial, coronal, and sagittal reformats were reconstructed. FINDINGS: No intracranial hemorrhage. Normal appearance of the white matter. No acute or subacute cortically based infarct. No mass or mass effect. Normal ventricles. No skull fractures. No worrisome focal bone lesion. Mastoids and middle ears are clear. Tiny mucocele left maxillary sinus. IMPRESSION: Normal head CT. Please note that all CT scans at this facility use dose modulation, iterative reconstruction, and/or weight-based dosing when appropriate to reduce radiation dose to as low as reasonably achievable. Dictated by Vanessa Charlton MD @ 11/14/2023 8:41:32 AM (Electronic Signature) ECG Data Attestation: I personally reviewed and interpreted this ECG as follows: (Normal sinus rhythm, 72 beats per minute. Flipped T-waves V3 through V5, flat V6. Flipped T-waves lead 3 and AVF but normal in lead 2.) Prior ECG tracings: available for review (Nonspecific T-wave changes noted on recent EKG from last ED visit.) Discharge Plan Discharge Clinical Impression: Acute vestibular neuritis Patient Disposition: Home, Self-Care Condition: Stable Instructions: Vertigo (ED) Additional Instructions: Take meclizine scheduled 3 times a day for the next week. We will have you start prednisone 20 mg daily for 7 days as well. This may take a few weeks to resolve. Do recommend that you get scheduled for follow-up with your primary care provider in the next 1-2 weeks. Please take copies of EKGs to your provider as there is T-wave abnormalities on your EKGs. Recommend that you have an echo, consider stress testing if felt appropriate or needed upon further risk factor evaluation with your primary care provider. Activity Level: Activity as Tolerated Prescriptions: New prednisone 20 mg tablet 20 mg PO DAILY Qty: 7 0RF No Action cholecalciferol (vitamin D3) 25 mcg (1,000 unit) tablet 25 mcg PO DAILY loratadine 10 mg tablet 10 mg PO DAILY calcium carbonate 600 mg calcium (1,500 mg) tablet 600 mg PO DAILY levothyroxine 75 mcg tablet 75 mcg PO DAILY multivitamin Tablet 1 tab PO QDAY meclizine 25 mg tablet 25 mg PO TID PRNQty: 15 0RF ondansetron 4 mg tablet,disintegrating 4 mg PO TID PRN (Reason: nausea and vomiting) Qty: 10 0RF lorazepam 1 mg tablet 1 mg PO TID PRNQty: 10 0RF Follow Up/Referrals: Melissa Barnes, [employer] [Primary Care Provider] - Stand Alone Forms: [employer] Info Instructions
[2023-11-14 08:15] VITALS: O2SAT 96
--- NOTE | 2023-11-14 08:15 | CRLHL7_ITS ---
For Patients: As a result of the Century Cures Act, medical imaging exams and procedure reports are released immediately into your electronic medical record. You may view this report before your referring provider. If you have questions, please contact your health care provider. INDICATION: Headache and vertigo for 1 week. COMPARISON: None. TECHNIQUE: CT of the brain / head without intravenous contrast. Multiplanar axial, coronal, and sagittal reformats were reconstructed. FINDINGS: No intracranial hemorrhage. Normal appearance of the white matter. No acute or subacute cortically based infarct. No mass or mass effect. Normal ventricles. No skull fractures. No worrisome focal bone lesion. Mastoids and middle ears are clear. Tiny mucocele left maxillary sinus. IMPRESSION: Normal head CT. Please note that all CT scans at this facility use dose modulation, iterative reconstruction, and/or weight-based dosing when appropriate to reduce radiation dose to as low as reasonably achievable. Dictated by Vanessa Charlton MD @ 11/14/2023 8:41:32 AM (Electronically Signed)
--- OUTSIDE RECORDS SUMMARY | 2023-11-14 08:23 | XMS_ITS | Clinical Summary ---
Author Organization [email or web address] [facility] [employer] [facility] Address [place], [place] [address] Care Team Providers Care Social Work Faculty Member Name Role Phone Melissa Barnes DENNIS Primary Care Provider [phone] Allergies Active Allergy Reactions Criticality Noted Date [...] >=3 years)(Flu Clinic Only) 12/10/2009 COVID-19 vaccine ([employer] 30mcg/0.3mL) PF, MDV 02/06/2021,05/20/2020,04/29/2020 Influenza A (H1N1), [...] Comments Blood Pressure 138/88 02/13/2023 7:54 AM NETBACKUP ADMINISTRATOR Pulse 74 02/13/2023 7:54 AM NETBACKUP ADMINISTRATOR Temperature 36.8 ??C (98.2 ??F) 07/28/2022 8:46 AM CD T Respiratory Rate 18 03/28/2022 8:48 PM NETBACKUP ADMINISTRATOR Oxygen Saturation 99% 09/03/2022 2:06 PM CDT Inhaled Oxygen Concentration - - Weight 76.2 kg (168 lb) 02/13/2023 7:54 AM NETBACKUP ADMINISTRATOR Height 155.6 cm (5' 1.25) 02/13/2023 7:54 AM CS T Body Mass Index 31.48 02/13/2023 7:54 AM NETBACKUP ADMINISTRATOR Plan of Treatment Health Maintenance Due Date [...] REFLEX MEASURED LDL Routine 02/13/2023 8:27 AM NETBACKUP ADMINISTRATOR Routine [facility] XR MAMMO LYNNETTE UNI DIAG RIGHT CHAD 08/28/2022 2:18 PM CDT Skin lesion HPV HIGH RISK Routine 02/11/2022 11:19 AM NETBACKUP ADMINISTRATOR Pap smear for cervical cancer screening COLONOSCOPY 02/06/2020 10:18 AM NETBACKUP ADMINISTRATOR ANTI HCV Routine 01/21/2019 8:58 AM NETBACKUP ADMINISTRATOR Encounter for hepatitis C screening test for low risk patient XR DXA BONE DENSITY 2 SITES AXIAL Routine 07/31/2016 9:11 AM CDT Osteoporosis screening from Last 3 Months or Most Recently Relevant to Health Maintenance Results * (ABNORMAL) LIPID PANEL W REFLEX MEASURED LDL (02/13/2023 8:27 AM [facility]) CHOLESTEROL,TOTAL 217(H) 100 - 199 mg/dL 02/13/2023 9:08 AM [facility] Comment: Cholesterol, Total Reference Ranges Desirable <200 mg/dL Borderline 200-239 mg/dL High >=240 mg/dL TRIGLYCERIDES 115 <150 mg/dL 02/13/2023 9:08 AM [facility] HDL CHOLESTEROL 71 >40 mg/dL 9:08 AM [facility] NON-HDL CHOLESTEROL 146(H) <145 mg/dl 02/13/2023 9:08 AM [facility] CHOL/HDL RATIO 3.06 <4.50 02/13/2023 9:08 AM [facility] LDL CHOLESTEROL 123 <=130 mg/dL 02/13/2023 9:08 AM [facility] VLDL CHOLESTEROL 23 <=30 mg/dL 02/13/2023 9:08 AM [facility] PROVIDER ORDERED STATUS RANDOM 02/13/2023 9:08 AM [facility] Blood BLOOD SPECIMEN / Unknown Venipuncture / Unknown 02/13/2023 8:27 AM NETBACKUP ADMINISTRATOR 02/13/2023 8:29 AM [facility] Melissa Barnes NP CHEMISTRY [facility] [address] [place] [address] * XR MAMMO LYNNETTE UNI DIAG RIGHT [...] * HPV HIGH RISK (02/11/2022 11:19 AM NETBACKUP ADMINISTRATOR) TYPE 16 Negative Negative 02/13/2022 5:26 PM NETBACKUP ADMINISTRATOR [facility] [employer] [facility] TYPE 18 Negative Negative 02/13/2022 5:26 PM NETBACKUP ADMINISTRATOR [facility] OTHER HIGH RISK TYPES Negative Negative 02/13/2022 5:26 PM NETBACKUP ADMINISTRATOR [facility] Other (Cervical) Non-Blood / Unknown 02/11/2022 11:19 AM NETBACKUP ADMINISTRATOR 02/12/2022 12:04 PM NETBACKUP ADMINISTRATOR Narrative [facility] - 02/13/2022 5:26 PM NETBACKUP ADMINISTRATOR HPV types 16, 18, 31, 33, 35, 39, 45, 51, 52, 56, 58, 59, 66 and 68 DNA were undetectable or below the pre-set threshold. Methodology: Marleen Steve 4800 HPV Test Melissa Sierraefrem [facility] [address] [place] [address], [place] * COLONOSCOPY (02/06/2020 10:18 AM NETBACKUP ADMINISTRATOR) 02/06/2020 10:1 8 AM NETBACKUP ADMINISTRATOR Narrative Transcriptions Keven Conde MD - 02/06/2020 11:05 AM CST Patient Name: Nela Ko Procedure Date: 02/06/2020 Gender: Female Date of : 1960 Admit Type: Ambulatory Procedure: Colonoscopy Proceduralist: Keven Conde [facility] Indications/Pre-Op Diagnosis: Colon cancer screening [...] ORD * ANTI HCV (01/21/2019 8:58 AM NETBACKUP ADMINISTRATOR) HEPATITIS C ANTIBODY Non-React sandeep Non-React sandeep 01/21/2019 3:43 PM NETBACKUP ADMINISTRATOR [facility] Comment:Antibodies to HCV no t detected; does not exclude the possibility of exposure to HCV. Blood BLOOD SPECIMEN / Unknown Venipuncture / Unknown 01/21/2019 8:58 AM NETBACKUP ADMINISTRATOR 01/21/2019 8:59 AM NETBACKUP ADMINISTRATOR Melissa Barnes [employer] [facility] [address] [place] [address], * XR DXA BONE DENSITY 2 SITES [...] Comments Code Status Discussion: Discussed Care Teams Social Work Faculty Member Relationship Specialty Start Date End Date Melissa Barnes NP [address] [place] [address] PCP - General Family Practice 07/06/17
[2023-11-14] MEDS: 0.9 % SODIUM CHLORIDE 500 ML 500 ML IV (08:52)
[2023-11-14] MEDS: ONDANSETRON 2 MG/ML inj 4 MG IVP (08:52)
[2023-11-14] MEDS: LORazepam 2 MG/ML inj 1 MG IVP (08:53)
[2023-11-14 09:00] VITALS: BP 147/78; PULSE 81; RESP 18; O2SAT 97
[2023-11-14 09:15] LABS: Basophils Absolute Auto 0.03 K/uL (0.00-0.30); Basophils Percent Auto 0.5 % (0.0-3.0); Eosinophils Absolute Auto 0.04 K/uL (0.00-0.50); Eosinophils Percent Auto 0.7 % (0.0-7.0); Hematocrit 43.9 % (33.0-51.0); Immature Granulocytes Abs Auto 0.01 K/uL (0.00-0.30); Immature Granulocytes Pct Auto 0.2 %; Mean Corpuscular HGB Conc 34 gm/dL (32-36); Mean Corpuscular Hemoglobin 31 pg (26-34); Mean Corpuscular Volume 89 fL (80-100); Monocytes Percent Auto 5.6 % (0.0-11.0); Platelet Count* 257 K/uL (140-440); RDW Coefficient of Variation % 13.1 % (11.5-15.5); Red Blood Count 4.92 m/uL (4.00-5.20); White Blood Count* 6.08 K/uL (4.50-11.00)
[2023-11-14 09:22] LABS: Slide Review Reflex No
[2023-11-14 09:30] VITALS: BP 135/76; PULSE 69; O2SAT 96
[2023-11-14 09:31] LABS: Chloride* 104 mmol/L (96-114)
[2023-11-14 09:32] LABS: Potassium* 3.8 mmol/L (3.6-5.1); Sodium* 138 mmol/L (135-149)
[2023-11-14 09:34] LABS: Creatinine* 0.9 mg/dL (0.5-1.5); Est. Creatinine Clearance* 44.36; Estimated Glomerular Filt Rate 71 ml/min
[2023-11-14 09:35] LABS: Anion Gap 8 mEq/L (7-15); Blood Urea Nitrogen* 15 mg/dL (7-30); Calcium* 9.6 mg/dL (8.4-10.6); Carbon Dioxide* 26 mmol/L (20-32); Glucose* 102 mg/dL (60-115)
[2023-11-14 09:49] LABS: Troponin I* < 0.01 ng/mL (0.01-0.04)
[2023-11-14 10:00] VITALS: BP 132/79; PULSE 78; RESP 16; O2SAT 98
[2023-11-14 10:21] VITALS: PULSE 82; O2SAT 96
== END 2023-11-14 10:45 | disposition home or self-care (01) ==
PROVIDERS: Emergency Provider Family Medicine; PCP Family Medicine
DX: H81.23 Vestibular neuronitis, bilateral (principal); E07.9 Disorder of thyroid, unspecified
CPT/HCPCS: 36415; 70450; 80048; 84443; 84484; 85025; 93005; 94761; 96374; 96375; 99284; 99285; J2060; J2405; J7030